=== PATIENT | female | born 2000 | race African-American/Black ===

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

== ENCOUNTER 2022-05-20 16:47 | Emergency (ER) | payer OTHER ==
[2022-05-20 17:35] VITALS: PULSE 88; TEMP 97.5
--- NOTE | 2022-05-20 18:29 | ED ---
General Adult HPI - General Chief complaint: Psychiatric Symptoms Stated complaint: Petitioned Time Seen by Provider: 05/20/22 17:52 Source: patient, RN notes reviewed, old records reviewed Mode of arrival: ambulatory Limitations: no limitations - History of Present Illness Initial comments: 21-year-old female for mental health evaluation. Patient has been petitioned by local police after they were called with suicidal behavior suicidal threats, she did have some covering for both her upper extremities and lower extremities is are superficial in nature. Patient had told officers that she no longer wants to live. She does admit to both marijuana and alcohol use., Cooperative with my evaluation. - Related Data Previous Rx's Medication Instructions Recorded Loratadine [Claritin] 10 mg PO DAILY 7 Days #7 tab 08/26/19 Lidocaine Viscous 2% [Xylocaine 5 ml MUCOUS MEM BID #60 ml 02/07/21 Viscous] Allergies Allergy/AdvReac Type Severity Reaction Status Date / Time No Known Allergies Allergy Verified 05/20/22 17:35 Review of Systems ROS Statement: Those systems with pertinent positive or pertinent negative responses have been documented in the HPI. ROS Other: All systems not noted in ROS Statement are negative. Past Medical History Past Medical History: No Reported History History of Any Multi-Drug Resistant Organisms: None Reported Past Surgical History: Adenoidectomy, Ear Surgery, Tonsillectomy Additional Past Surgical History / Comment(s): ear x4 Past Psychological History: Anxiety, Depression Smoking Status: Current every day smoker Past Alcohol Use History: Occasional Past Drug Use History: Marijuana General Exam Limitations: no limitations General appearance: alert, in no apparent distress Head exam: Present: atraumatic, normocephalic Eye exam: Present: normal appearance, PERRL ENT exam: Present: normal exam Respiratory exam: Present: normal lung sounds bilaterally. Absent: respiratory distress, wheezes Cardiovascular Exam: Present: regular rate, normal rhythm GI/Abdominal exam: Present: soft. Absent: distended, tenderness Extremities exam: Present: other (Superficial lacerations bilateral upper forear ms, bilateral thighs. No repairable laceration.) Neurological exam: Present: alert, oriented X3, CN II-XII intact. Absent: motor sensory deficit Psychiatric exam: Present: depressed, flat affect, suicidal ideation Skin exam: Present: warm, dry Course Vital Signs 05/20/22 17:32 Temperature 97.5 F L Pulse Rate 88 Respiratory 16 Rate Blood Pressure 142/92 O2 Sat by Pulse 99 Oximetry - Reevaluation(s) Reevaluation #1: 05/20/22 18:29 Cleared for EPS. Medical Decision Making - Medical Decision Making 21-year-old female who had presented for mental health evaluation. Patient was evaluated by EPS. She had been offered admission for inpatient psychiatric evaluation treatment but she declined. She is not feeling suicidal. She has signed a safety plan. She has an appointment with [facility] on Wednesday which is 2 days from now. She has an appointment in May for evaluation by psychiatrist for possible medication. She is feeling much better, and contracts to safety. Disposition Clinical Impression: Depression Disposition: ADMITTED IP TO THIS HOSP Condition: Fair Instructions (If sedation given, give patient instructions): Depression (ED) Additional Instructions: Please return to the emergency department with worsening or changing symptoms. Please follow up with [facility]. Is patient prescribed a controlled substance at d/c from ED?: No Referrals: None,Stated [Primary Care Provider] - 1-2 days Time of Disposition: 20:58
[2022-05-20 21:15] LABS: Amphetamine Screen,Urine Not Detected (NotDetected); Barbiturate Screen,Urine Not Detected (NotDetected); Benzodiazepines Screen,Urine Not Detected (NotDetected); Cocaine Screen,Urine Not Detected (NotDetected); Methadone Screen, Urine Not Detected (NotDetected); Opiate Screen,Urine Not Detected (NotDetected); Oxycodone Screen, Urine Not Detected (NotDetected); Phencyclidine Screen,Urine Not Detected (NotDetected); Tricyclic Antidepressant,Urine Not Detected (NotDetected); Urn Cannabinoid Scrn Detected (NotDetected)
[2022-05-20 21:27] VITALS: BP 135/101; RESP 20
== END 2022-05-20 21:27 | disposition other institution (70) ==
LOC: EC 16:47
DX: F32.A Depression, unspecified (principal); F17.200 Nicotine dependence, unspecified, uncomplicated
CPT/HCPCS: 80306; 82075; 99284